=== PATIENT | female | born 1940 | race Caucasian/White ===

== ENCOUNTER → 2016-07-05 | Outpatient (CLI) | payer MEDICARE, BC | LOC: MW.CHFP 14:06 | PROVIDERS: ATTEND Nurse Practitioner Family | DX: R19.5 Other fecal abnormalities (principal) | CPT/HCPCS: 36415; 85025; G0463 ==

== ENCOUNTER → 2016-07-08 | Outpatient (CLI) | payer MEDICARE, BC | END | disposition home or self-care (01) | LOC: MW.CHFP 14:02 | PROVIDERS: ATTEND Nurse Practitioner Family | DX: R19.5 Other fecal abnormalities (principal) | CPT/HCPCS: 82272; 83630; 87046; 87077; 87328; 87329; 87899 ==

== ENCOUNTER 2020-02-04 15:43 | Emergency (ER) | payer MEDICARE, BC, OTHER ==
[2020-02-04] MEDS ORDERED: Sodium Chloride 0.9% 1,000 ML IV ONE (16:17)
[2020-02-04 16:42] LABS: BLOOD UREA NITROGEN,BUN 8 mg/dL (7.0-18.0); CARBON DIOXIDE,CO2 28.1 mmol/L (21.0-32.0); CHLORIDE,CL 100 mmol/L (98-107); GLUCOSE RANDOM 97 mg/dL (74-106); LIPASE 65 U/L (73-393); POTASSIUM,K 4.1 mmol/L (3.5-5.1); SODIUM,NA 136 mmol/L (136-145)
--- NOTE | 2020-02-04 17:13 | CR ---
INDICATION: Body aches. COMPARISON: February 28, 2017 TECHNIQUE: A single view chest radiograph was performed FINDINGS: TUBES AND LINES: None. HEART AND MEDIASTINUM: The heart size is normal. The mediastinal contour appears normal for patient age. LUNGS AND PLEURAL SPACES: The lungs appear normal.There pleural spaces are unremarkable. OSSEOUS STRUCTURES: Age-appropriate appearance. No acute focal finding. IMPRESSION: Normal single-view chest radiograph Dictated by Glynn Vilchis MD @ Feb 04 2020 5:11PM Signed by Dr. Glynn Vilchis @ Feb 04 2020 5:13PM
--- NOTE | 2020-02-04 17:38 | PCM.SN.2 ---
- Free Text/Narrative Note: 12-Lead ECG Interpretation Acquired: 4:43 PM Rhythm: Sinus rhythm Rate: 60 bpm [place]: Normal Intervals: Normal Ectopy: None RV Strain: No obvious RV strain pattern. ST Segments/T-Waves: No notable changes Acute Ischemic Changes: None apparent Interpretation: No STEMI
--- NOTE | 2020-02-04 18:28 | EDM.PDOC ---
ED HPI GENERAL MEDICAL PROBLEM - General Chief Complaint: General Stated Complaint: BODY ACHES Time Seen by Provider: 02/04/20 15:46 Source of Information: Reports: Patient History Limitations: Reports: No Limitations - History of Present Illness INITIAL COMMENTS - FREE TEXT/NARRATIVE: HISTORY AND PHYSICAL: History of present illness: Patient is a 79-year-old female who presents to the ED today with concern of generalized body pain that she describes as sore muscles. Patient states that she has pain from her head to her toes which started yesterday on her way home from [facility]. Patient states that she had a lumpectomy of her left breast on Friday02/02/20 at [facility] in [place] and stayed overnight in the hospital. Patient states she was discharged yesterday morning and on the drive home she began to notice she has pain "all over"and has continued into today. Patient states that the area of her breast that she had the lumpectomy is mildly tender but she states that she has pain from "the top of her head to the tip of her toes". Patient denies any trauma or injury and states that she does have some muscle soreness but is unable to fully describe what she means more than this. Patient denies any associated symptoms with this. Patient denies fever, chills, chest pain, shortness of breath, or cough. Denies headache, neck stiff ness, change in vision, syncope, or near syncope. Denies nausea, vomiting, abdominal pain, diarrhea, constipation, or dysuria. Has not noted any blood in urine or stool. Patient has been eating and drinking appr opriately. Review of systems: As per history of present illness and below otherwise all systems reviewed and negative. Past medical history: As per history of present illness and as reviewed below otherwise noncontributory. Surgical history: As per history of present illness and as reviewed below otherwise noncontributory. Social history: See social history for further information Family history: As per history of present illness and as reviewed below otherwise noncontributory. Physical exam: General: Patient is alert, oriented, and in no acute distress. Patient sitting comfortably on exam table. HEENT: Atraumatic, normocephalic, pupils equal and reactive bilaterally, negative for conjunctival pallor or scleral icterus, mucous membranes moist, TMs normal bilaterally, throat clear, neck supple, nontender, trachea midline. No drooling or trismus noted. No meningeal signs. No hot potato voice noted. Lungs: Clear to auscultation, breath sounds equal bilaterally, chest nontender. Breast: Drill Grinder at bedside Trang Patel. The left breast has a large area of purple bruising with recent surgical incision over the lateral breast/areola without drainage, erythema and appears to be healing appropriately. There is a smaller surgical incision of the left axilla consistent with recent surgical history that als appears to be healing well without drainage or erythema. Heart: S1S2, regular rate and rhythm without overt murmur Abdomen: Soft, nondistended, nontender. Negative for masses or hepatosplenomegaly. Negative for costovertebral tenderness. Pelvis: Stable nontender. Genitourinary: Deferred. Rectal: Deferred. Skin: Intact, warm, dry. No lesions or rashes noted. Extremities: Patient does have full ROM of bilateral upper and bilateral lower extremities without pain or difficulty but does have non-specific muscle body pain of all extremities to palpation. Obvious deformity of the complete spine. No step-offs, crepitus, or point tenderness to palpation of the complete spine. Patient does have limited ROM of the lumbar spine due to pain but states this is baseline due to arthiritis and not changed according to patient. Patient did ambulate into the ED today. Otherwise, atraumatic, negative for cords or calf pain. Neurovascular unremarkable. Neuro: Awake, alert, oriented. Cranial nerves II through XII unremarkable. Cerebellum unremarkable. Motor and sensory unremarkable throughout. Exam nonfocal. Notes: Admission for observation was offered to patient but she declines at this time. All risks vs benefits discussed with patient and expresses understanding. Signs and symptoms that would prompt return to the ED thoroughly discussed with patient. Discussed importance for follow-up with a primary care provider. Voices understanding and is agreeable to plan of care. Denies any further questions or concerns at this time. Diagnostics: EKG, CBC, CMP, UA, CPK, CXR, Trop, Influenza, COVID Therapeutics: Toradol 15mg IV Prescription: None Impression: Myalgias, unspecified Plan: 1. You can use Tylenol as directed for pain and discomfort. 2. Follow up with a primary care provider as discussed. Return to the ED as needed and as discussed. Definitive disposition and diagnosis as appropriate pending reevaluation and review of above. all over body Pain Score (Numeric/FACES): 10 - Related Data Allergies Allergy/AdvReac Type Severity Reaction Status Date / Time albuterol sulfate Allergy Shortness Verified 02/04/20 16:15 [From Combivent] of Breath codeine Allergy Hives Verified 02/04/20 16:15 ipratropium bromide Allergy Shortness Verified 02/04/20 16:15 [From Combivent] of Breath sulfamethoxazole Allergy Hives Verified 02/04/20 16:15 [From Bactrim] trimethoprim [From Bactrim] Allergy Hives Verified 02/04/20 16:15 Home Meds: Home Meds Fluticasone Propionate [Flovent] 2 sprays NASBOTH DAILY 06/20/15 [History] Furosemide 40 tab PO Q48H PRN 06/20/15 [History] Triamterene/Hydrochlorothiazid [Triamterene-HCTZ 37.5-25 MG] 1 tab PO DAILY 07/17/15 [History] Escitalopram [Lexapro] 20 mg PO DAILY 02/04/20 [History] Non-Formulary Medication [NF Drug] 1 puff INH DAILY 02/04/20 [History] Potassium Chloride [Klor-Con 10] 20 meq PO BID 02/04/20 [History] Promethazine [Phenergan] 5 - 10 ml PO Q4H PRN 02/04/20 [History] Zolpidem Tartrate [Zolpidem Tartrate ER] 6.25 mg PO BEDTIME 02/04/20 [History] Past Medical History - Past Health History Medical/Surgical History: Denies Medical/Surgical History HEENT History: Reports: Impaired Vision Other HEENT History: wears glasses, has upper partial denture Cardiovascular History: Reports: None Respiratory History: Reports: Asthma, COPD, Other (See Below) Other Respiratory History: lung cancer, s/p right upper lobectomy 02/25. COPD Gastrointestinal History: Reports: GERD Genitourinary History: Reports: None Musculoskeletal History: Reports: Arthritis Other Musculoskeletal History: right wrist Neurological History: Reports: None Psychiatric History: Reports: Anxiety, Depression Endocrine/Metabolic History: Reports: None Other Hematologic History: refuses blood transfusions Immunologic History: Reports: None Oncologic (Cancer) History: Reports: Breast, Lung Dermatologic History: Reports: None - Infectious Disease History Infectious Disease History: Reports: Chicken Pox, Measles, Mumps, Shingles - Past Surgical History Head Surgeries/Procedures: Reports: None Cardiovascular Surgical History: Reports: None Respiratory Surgical History: Reports: Lung Biopsies Other Respiratory Surgeries/Procedures: Lung biopsies 2016 GI Surgical History: Reports: Colonoscopy, EGD Female Surgical History: Reports: Hysterectomy Endocrine Surgical History: Reports: None Neurological Surgical History: Reports: None Oncologic Surgical History: Reports: Lobectomy, Lumpectomy Other Oncologic Surgeries/Procedures: Lumpectomy on 02/02/2020 Social & Family History - Family History Family Medical History: Noncontributory Oncologic: Reports: Brain, Other (See Below) Other Oncologic Family History: stomach - Tobacco Use Second Hand Smoke Exposure: No - Recreational Drug Use Recreational Drug Use: No ED ROS GENERAL - Review of Systems Review Of Systems: Comprehensive ROS is negative, except as noted in HPI. ED EXAM, GENERAL - Physical Exam Exam: See Below (see dictation) Course - Vital Signs Last Recorded V/S: Last Vital Signs Temp 97.6 F 02/04/20 19:04 Pulse 62 02/04/20 19:04 Resp 18 02/04/20 19:04 BP 195/69 H 02/04/20 19:04 Pulse Ox 95 02/04/20 19:04 - Orders/Labs/Meds Orders: Active Orders 24 hr Category Date Time Status Cardiac Monitoring [RC] . DIRECTED Care 02/04/20 16:16 Active EKG Documentation Completion [RC] STAT Care 02/04/20 16:16 Active Isolation [COMM] Routine Oth 02/04/20 16:19 Active Labs: Laboratory Tests 02/04/20 02/04/20 02/04/20 Range/Units 16:05 16:05 17:19 WBC 6.69 (4.0-11.0) K/uL RBC 3.91 L (4.30-5.90) M/uL Hgb 12.6 (12.0-16.0) g/dL Hct 37.7 (36.0-46.0) % MCV 96.4 (80.0-98.0) fL MCH 32.2 H (27.0-32.0) pg MCHC 33.4 (31.0-37.0) g/dL RDW Std Deviation 46.5 (28.0-62.0) fl RDW Coeff of Amandeep 13 (11.0-15.0) % Plt Count 269 (150-400) K/uL MPV 9.10 (7.40-12.00) fL Neut % (Auto) 52.7 (48.0-80.0) % Lymph % (Auto) 34.2 (16.0-40.0) % [place] % (Auto) 9.4 (0.0-15.0) % Eos % (Auto) 3.0 (0.0-7.0) % Baso % (Auto) 0.7 (0.0-1.5) % Neut # (Auto) 3.5 (1.4-5.7) K/uL Lymph # (Auto) 2.3 (0.6-2.4) K/uL [place] # (Auto) 0.6 (0.0-0.8) K/uL Eos # (Auto) 0.2 (0.0-0.7) K/uL Baso # (Auto) 0.1 (0.0-0.1) K/uL Nucleated RBC % 0.0 /100WBC Nucleated RBCs # 0 K/uL Sodium 136 (136-145) mmol/L Potassium 4.1 (3.5-5.1) mmol/L Chloride 100 (98-107) mmol/L Carbon Dioxide 28.1 (21.0-32.0) mmol/L BUN 8 (7.0-18.0) mg/dL Creatinine 0.7 (0.6-1.0) mg/dL Est Cr Clr Drug Dosing 52.39 mL/min Estimated GFR (MDRD) > 60.0 ml/min Glucose 97 (74-106) mg/dL Calcium 8.6 (8.5-10.1) mg/dL Total Bilirubin 0.5 (0.2-1.0) mg/dL AST 19 (15-37) IU/L ALT 21 (14-63) IU/L Alkaline Phosphatase 69 (46-116) U/L Creatine Kinase 60 (26-308) U/L Troponin I < 0.050 (0.000-0.056) ng/mL Total Protein 6.6 (6.4-8.2) g/dL Albumin 3.6 (3.4-5.0) g/dL Globulin 3.0 (2.6-4.0) g/dL Albumin/Globulin Ratio 1.2 (0.9-1.6) Lipase 65 L (73-393) U/L Urine Color YELLOW Urine Appearance CLEAR Urine pH 7.0 (5.0-8.0) Ur Specific Gilbert 1.010 (1.001-1.035) Urine Protein NEGATIVE (NEGATIVE) mg/dL Urine Glucose (UA) NEGATIVE (NEGATIVE) mg/dL Urine Ketones NEGATIVE (NEGATIVE) mg/dL Urine Occult Blood NEGATIVE (NEGATIVE) Urine Nitrite NEGATIVE (NEGATIVE) Urine Bilirubin NEGATIVE (NEGATIVE) Urine Urobilinogen 0.2 (<2.0) EU/dL Ur Leukocyte Esterase NEGATIVE (NEGATIVE) SARS-CoV-2 RNA (BHAVANI) (NEGATIVE) 02/04/20 Range/Units 17:30 WBC (4.0-11.0) K/uL RBC (4.30-5.90) M/uL Hgb (12.0-16.0) g/dL Hct (36.0-46.0) % MCV (80.0-98.0) fL MCH (27.0-32.0) pg MCHC (31.0-37.0) g/dL RDW Std Deviation (28.0-62.0) fl RDW Coeff of Amandeep (11.0-15.0) % Plt Count (150-400) K/uL MPV (7.40-12.00) fL Neut % (Auto) (48.0-80.0) % Lymph % (Auto) (16.0-40.0) % [place] % (Auto) (0.0-15.0) % Eos % (Auto) (0.0-7.0) % Baso % (Auto) (0.0-1.5) % Neut # (Auto) (1.4-5.7) K/uL Lymph # (Auto) (0.6-2.4) K/uL [place] # (Auto) (0.0-0.8) K/uL Eos # (Auto) (0.0-0.7) K/uL Baso # (Auto) (0.0-0.1) K/uL Nucleated RBC % /100WBC Nucleated RBCs # K/uL Sodium (136-145) mmol/L Potassium (3.5-5.1) mmol/L Chloride (98-107) mmol/L Carbon Dioxide (21.0-32.0) mmol/L BUN (7.0-18.0) mg/dL Creatinine (0.6-1.0) mg/dL Est Cr Clr Drug Dosing mL/min Estimated GFR (MDRD) ml/min Glucose (74-106) mg/dL Calcium (8.5-10.1) mg/dL Total Bilirubin (0.2-1.0) mg/dL AST (15-37) IU/L ALT (14-63) IU/L Alkaline Phosphatase (46-116) U/L Creatine Kinase (26-308) U/L Troponin I (0.000-0.056) ng/mL Total Protein (6.4-8.2) g/dL Albumin (3.4-5.0) g/dL Globulin (2.6-4.0) g/dL Albumin/Globulin Ratio (0.9-1.6) Lipase (73-393) U/L Urine Color Urine Appearance Urine pH (5.0-8.0) Ur Specific Gilbert (1.001-1.035) Urine Protein (NEGATIVE) mg/dL Urine Glucose (UA) (NEGATIVE) mg/dL Urine Ketones (NEGATIVE) mg/dL Urine Occult Blood (NEGATIVE) Urine Nitrite (NEGATIVE) Urine Bilirubin (NEGATIVE) Urine Urobilinogen (<2.0) EU/dL Ur Leukocyte Esterase (NEGATIVE) SARS-CoV-2 RNA (BHAVANI) NEGATIVE (NEGATIVE) Meds: Medications Discontinued Medications Generic Name Dose Route Start Last Admin Trade Name Hieuq PRN Reason Stop Dose Admin Sodium Chloride 1,000 mls @ 500 mls/hr 02/04/20 16:17 02/04/20 16:47 Normal Saline IV 02/04/20 18:16 500 mls/hr STAT ONE Administration Ketorolac Tromethamine 15 mg 02/04/20 18:45 02/04/20 19:01 Toradol IVPUSH 02/04/20 18:46 15 mg ONETIME ONE Administration Departure - Departure Time of Disposition: 19:18 Disposition: Home, Self-Care 01 Clinical Impression: Myalgia - Discharge Information Referrals: Jeff Vargas MD [Primary Care Provider] - Forms: ED Department Discharge Additional Instructions: The following information is given to patients seen in the emergency department who are being discharged to home. This information is to outline your options for follow-up care. We provide all patients seen in our emergency department with a follow-up referral. The need for follow-up, as well as the timing and circumstances, are variable depending upon the specifics of your emergency department visit. If you don't have a primary care physician on staff, we will provide you with a referral. We always advise you to contact your personal physician following an emergency department visit to inform them of the circumstance of the visit and for follow-up with them and/or the need for any referrals to a consulting specialist. The emergency department will also refer you to a specialist when appropriate. This referral assures that you have the opportunity for follow-up care with a specialist. All of these measure are taken in an effort to provide you with optimal care, which includes your follow-up. Under all circumstances we always encourage you to contact your private juancarlos garciaian who remains a resource for coordinating your care. When calling for follow-up care, please make the office aware that this follow-up is from your recent emergency room visit. If for any reason you are refused follow-up, please contact the [facility] Emergency Department at and asked to speak to the emergency department charge nurse. [facility] [address] [place] [id number] [place] [address] 1. You can use Tylenol as directed for pain and discomfort. 2. Follow up with a primary care provider as discussed. Return to the ED as needed and as discussed. Sepsis Event Note (ED) - Evaluation Sepsis Screening Result: No Definite Risk - Focused Exam Vital Signs: Vital Signs Temp Pulse Resp BP Pulse Ox 02/04/20 19:04 97.6 F 62 18 195/69 H 95 02/04/20 18:00 60 18 189/82 H 95 02/04/20 17:34 72 18 182/83 H 95 02/04/20 16:55 97.6 F 63 18 189/54 H 95 02/04/20 16:09 97.3 F 68 16 190/61 H 96 - My Orders Last 24 Hours: My Active Orders 02/04/20 16:16 Cardiac Monitoring [RC] . DIRECTED EKG Documentation Completion [RC] STAT 02/04/20 16:19 Isolation [COMM] Routine - Assessment/Plan Last 24 Hours: My Active Orders 02/04/20 16:16 Cardiac Monitoring [RC] . DIRECTED EKG Documentation Completion [RC] STAT 02/04/20 16:19 Isolation [COMM] Routine
[2020-02-04] MEDS ORDERED: Ketorolac 30 MG/ML SDV IVPUSH ONE (18:45)
[2020-02-04 19:41] VITALS: BP 182/88; PULSE 72
== END 2020-02-04 19:52 | disposition home or self-care (01) ==
LOC: MW.ED 15:43
DX: M79.10 Myalgia, unspecified site (principal); J44.9 Chronic obstructive pulmonary disease, unspecified; F41.9 Anxiety disorder, unspecified; F32.9 Major depressive disorder, single episode, unspecified; Z79.899 Other long term (current) drug therapy; Z20.828 Contact with and (suspected) exposure to other viral communicable diseases; Z88.8 Allergy status to other drugs, medicaments and biological substances; Z88.5 Allergy status to narcotic agent; Z88.2 Allergy status to sulfonamides; Z88.1 Allergy status to other antibiotic agents
CPT/HCPCS: 71045; 80053; 81003; 82550; 82962; 83690; 84484; 85025; 87804; 93005; 96374; 99284; J1885; J7030; U0002; 93010